=== PATIENT | male | born 1980 | race Caucasian/White ===

== ENCOUNTER 2017-09-04 21:10 | Emergency (ER) | payer SELFPAY ==
[~2017-09-04] VITALS: Ht 165.1 cm; Wt 63.5 kg
[2017-09-04 21:21] VITALS: BP 123/64
--- NOTE | 2017-09-04 21:30 | NUR ---
TO LOBBY LIBBY KHALIL,A/W LEDY BIRD NOTED, NO BLEEDING AT THIS TIME
--- NOTE | 2017-09-05 00:55 | NUR ---
PATIENT CALLED NO RESPONSE.
--- NOTE | 2017-09-05 01:00 | NUR ---
CALLED THE SECOND TIME NO RESPONSE
--- NOTE | 2017-09-05 01:05 | NUR ---
PATIENT CALLED TO BED NO RESPONSE PATIENT LEFT WITHOUT BEING SEEN BY DR. FRANCIS. NO FURTHER CARE PROVIDED FOR PATIENT.
== END 2017-09-05 01:05 | disposition left against medical advice (07) ==
LOC: MED 21:10
DX: S61.412A Laceration without foreign body of left hand, initial encounter (principal); Z53.21 Procedure and treatment not carried out due to patient leaving prior to being seen by health care provider; W45.8XXA Other foreign body or object entering through skin, initial encounter; Y93.89 Activity, other specified; Y92.89 Other specified places as the place of occurrence of the external cause; Y99.8 Other external cause status